=== PATIENT | male | born 1950 | race Caucasian/White ===

== ENCOUNTER 2024-10-25 06:17 | Emergency (ER) | payer MEDICARE ==
[2024-10-25] MEDS: traMADol 50 MG Tab PO ONE (07:07)
== END 2024-10-25 08:25 | disposition home or self-care (01) ==
LOC: SUPCPDRO 06:17 → FB.ED 06:17
DX: M25.561 Pain in right knee (principal); L21.9 Seborrheic dermatitis, unspecified; I10 Essential (primary) hypertension; E66.9 Obesity, unspecified; Z79.899 Other long term (current) drug therapy; Z86.16 Personal history of COVID-19; Z87.891 Personal history of nicotine dependence; Z68.34 Body mass index [BMI] 34.0-34.9, adult
CPT/HCPCS: 73564; 99283; A9270